=== PATIENT | female | born 1985 | race Hispanic/Latino ===

== ENCOUNTER 2017-03-31 05:58 | Emergency (ER) | payer MEDICAID ==
[2017-03-31 06:10] VITALS: BP 139/85; PULSE 72; RESP 16; TEMP 98.3; O2SAT 100
--- NOTE | 2017-03-31 06:19 | ED PDOC ---
HPI: Psych/Substance Abuse Time Seen by Provider: 03/31/17 06:07 Chief Complaint (Nursing): Psychiatric Evaluation Chief Complaint (Provider): crisis eval History Per: Patient, Family Current Symptoms Are (Timing): Gone Now Severity: None Involuntary Hold By: None Additional Complaint(s): Patient BIB EMS after making suicidal declaration while in police custody. She states she was upset at time due to being arrested for DUI. She states she has no actual suicidal or homicidal ideation. Pt was subsequetly released by [employer] but made to come to ED for crisis eval. Past Medical History Reviewed: Historical Data, Nursing Documentation, Vital Signs Vital Signs: Last Vital Signs Temp 98.3 F 03/31/17 06:07 Pulse 72 03/31/17 06:07 Resp 16 03/31/17 06:07 BP 139/85 03/31/17 06:07 Pulse Ox 100 03/31/17 06:07 - Medical History PMH: No Chronic Diseases - Surgical History Surgical History: No Surg Hx - Family History Family History: States: No Known Family Hx - Living Arrangements Living Arrangements: With Family - Social History Current smoker - smoking cessation education provided: No Ex-Smoker (has not smoked in the last 12 months): No Alcohol: Occasional Drugs: Denies - Allergies Allergies/Adverse Reactions: Allergies Allergy/AdvReac Type Severity Reaction Status Date / Time No Known Allergies Allergy Verified 03/31/17 06:10 Review of Systems ROS Statement: Except As Marked, All Systems Reviewed And Found Negative Physical Exam - Reviewed Nursing Documentation Reviewed: Yes Vital Signs Reviewed: Yes - Physical Exam Appears: Positive for: Well, Non-toxic Head Exam: Positive for: ATRAUMATIC, NORMOCEPHALIC Skin: Positive for: Normal Color, Warm, Dry Eye Exam: Positive for: Normal appearance, EOMI, PERRL ENT: Positive for: Normal ENT Inspection Cardiovascular/Chest: Positive for: Regular Rate, Rhythm. Negative for: Chest Non Tender, Edema, Gallop Respiratory: Positive for: Normal Breath Sounds. Negative for: Crackles, Rales , Wheezing Gastrointestinal/Abdominal: Positive for: Normal Exam, Bowel Sounds, Soft. Negative for: Tenderness Back: Positive for: Normal Inspection. Negative for: L CVA Tenderness, R CVA Tenderness Extremity: Positive for: Normal ROM. Negative for: Tenderness, Pedal Edema Neurologic/Psych: Positive for: Alert, Oriented. Negative for: Motor/Sensory Deficits - ECG O2 Sat by Pulse Oximetry: 100 Disposition - Clinical Impression Clinical Impression: Adjustment disorder - Patient ED Disposition Is Patient to be Admitted: No - Disposition Disposition: Routine/Home Disposition Time: 06:20 Condition: STABLE
== END 2017-03-31 06:30 | disposition home or self-care (01) ==
LOC: H.ER 05:58
DX: F43.20 Adjustment disorder, unspecified (principal)